=== PATIENT | female | born 1975 | race Hispanic/Latino ===

== ENCOUNTER → 2025-02-18 07:57 | Outpatient (REF) | payer SELFPAY | LOC: WDC 07:57 | PROVIDERS: ATTENDING PHYSICIAN Internal Medicine; FAMILY PHYSICIAN Nurse Practitioner Adult Health | DX: Z12.39 Encounter for other screening for malignant neoplasm of breast (principal); Z12.31 Encounter for screening mammogram for malignant neoplasm of breast | CPT/HCPCS: 77063; 77067 ==

== ENCOUNTER → 2025-06-18 10:28 | Outpatient (REF) | payer OTHER, SELFPAY ==
[2025-06-18 11:37] LABS: Hematocrit 37.7 % (37.0-47.0); Hemoglobin 12.6 g/dL (12.0-16.0); Mean Corp Hgb Conc. 33.4 g/dL (33.0-37.0); Mean Corpuscular Volume 80.7 fL (81.0-99.0); Nucleated Red Blood Cells % 0 %; Platelet Count 233 10^3/uL (130-400); Red Cell Dist. Width 14.3 % (11.5-14.5)
[2025-06-18 12:12] LABS: ALT (SGPT) 28 U/L (0-35); AST (SGOT) 26 U/L (14-36); Albumin 4.3 g/dl (3.5-5.0); Alkaline Phosphatase 81 U/L (38-126); Blood Urea Nitrogen 14 mg/dl (7-17); Calcium 9.4 mg/dl (8.4-10.2); Carbon Dioxide 27 mmol/L (22-30); Chloride 107 mmol/L (98-107); Glucose 80 mg/dl (70-99); HDL Cholesterol 80 mg/dl; LDL Cholesterol, Calculated 149 mg/dl; Potassium 4.4 mmol/L (3.5-5.1); Sodium 138 mmol/L (135-145); Total Protein 6.7 g/dl (6.3-8.2); Very Low Density Lipoprotein 11 mg/dl (0-30); eGFR > 60.00
== END ==
LOC: REG 10:28
PROVIDERS: ATTENDING PHYSICIAN Family Medicine
DX: Z00.00 Encounter for general adult medical examination without abnormal findings (principal)
CPT/HCPCS: 36415; 80053; 80061; 85025

== ENCOUNTER → 2025-07-01 11:33 | Outpatient (REF) | payer OTHER, SELFPAY ==
[2025-07-01 13:54] LABS: Glycohemoglobin (HgbA1c) 5.5 % (4.0-5.6)
[2025-07-01 15:17] LABS: Iron 100 ug/dl (37-170)
[2025-07-01 15:27] LABS: Total Iron Binding Capacity 323 ug/dl (265-497)
[2025-07-01 17:40] LABS: Ferritin 21.7 ng/ml (11.1-264.0)
== END ==
LOC: REG 11:33
PROVIDERS: ATTENDING PHYSICIAN Family Medicine
DX: R71.8 Other abnormality of red blood cells (principal)
CPT/HCPCS: 36415; 82728; 83036; 83540; 83550; 84443